=== PATIENT | female | born 1950 | race Caucasian/White ===

== ENCOUNTER 2024-09-29 08:59 | Outpatient (CLI) | payer MEDICARE | END 2024-09-29 09:00 | disposition home or self-care (01) | LOC: CSHSLEEP 08:59 | PROVIDERS: ATTEND Internal Medicine | DX: G47.9 Sleep disorder, unspecified (principal); R53.83 Other fatigue; K21.9 Gastro-esophageal reflux disease without esophagitis; I51.9 Heart disease, unspecified; R06.83 Snoring; G47.00 Insomnia, unspecified; F32.A Depression, unspecified; R35.1 Nocturia; G47.33 Obstructive sleep apnea (adult) (pediatric) | CPT/HCPCS: 95800 ==